=== PATIENT | female | born 1950 | race Caucasian/White ===

== ENCOUNTER 2017-12-13 14:58 | Emergency (ER) | payer OTHER ==
[~2017-12-13] VITALS: Ht 177.8 cm; Wt 112.3 kg
[~2017-12-13 14:58] MED LIST: ALPRAZOLAM0.5 MG PO; ATELVIA35 MG PO; BENICAR40 MG PO; CYMBALTA60 MG PO; FLAGYL500 MG PO; GABAPENTIN600 MG; GABAPENTIN600 MG PO; GLIMEPIRIDE1 MG PO; GLUMETZA1000 M1 PO; LOSARTAN POTASS50 MG PO; SIMVASTATIN40 MG PO; TRAZODONE HCL100 MG PO; VICTOZA 2-0.6 MG/0.1 SC; ZOFRAN ODT4 MG PO
[2017-12-13 16:11] LABS: HEMATOCRIT 39.5 % (36.0-46.0); HEMOGLOBIN 13.3 G/DL (11.9-15.5); MCH 30.2 PG (29.0-34.0); MCHC 33.7 G/DL (30.0-36.0); MCV 89.8 FL (83-99); PLATELET COUNT 261 K/uL (156-360); RBC DIS.WIDTH-CV 12.7 % (11.8-14.6); RBC DIS.WIDTH-SD 42.1 % (39-53)
[2017-12-13 16:21] LABS: APPEARANCE CLEAR ((CLEAR)); BILIRUBIN NEGATIVE; BLOOD LARGE; COLOR YELLOW ((YELLOW)); GLUCOSE (STRIP) 50; KETONES NEGATIVE; LEUKOCYTES NEGATIVE; NITRITE NEGATIVE; PROTEIN (STRIP) 100; SPECIFIC GRAVITY 1.019 (1.000-1.030); UROBILINOGEN 0.2 MG/DL (0.2-1.0)
[2017-12-13 16:23] LABS: BACTERIA NONE SEEN /HPF; EPITHELIAL CELLS RARE /HPF; MUCUS TRACE /LPF; RED BLOOD CELLS TNTC /HPF (0-5); UCUL ADDED? YES; WHITE BLOOD CELLS 0-5 /HPF (0-5)
[2017-12-13 16:24] LABS: CHLORIDE 106 mEq/L (99-109); POTASSIUM 3.9 mEq/L (3.7-5.4); SODIUM 137 mEq/L (136-147)
[2017-12-13 16:25] LABS: GLUCOSE 193 mg/dL (70-99)
[2017-12-13 16:29] LABS: CREATININE 1.2 mg/dL (0.6-1.3); GFR ESTIMATE (CALCULATED) 48 mL/min/
[2017-12-13 16:30] LABS: UREA NITROGEN (BUN) 19 mg/dL (9-23)
[2017-12-13] MEDS ORDERED: MOTRIN800 MG PO (17:53)
[2017-12-13] MEDS ORDERED: FLOMAX0.4 MG PO (17:53)
[2017-12-13] MEDS ORDERED: ZOFRAN ODT4 MG PO (17:53)
[2017-12-13] MEDS ORDERED: PERCOCET 5/31 TABLET PO (17:53)
[2017-12-13 18:06] VITALS: BP 173/91
== END 2017-12-13 18:07 | disposition home or self-care (01) ==
LOC: EME 14:58
PROVIDERS: Nurse Practitioner Family
DX: N13.2 Hydronephrosis with renal and ureteral calculous obstruction (principal); Z87.442 Personal history of urinary calculi; I10 Essential (primary) hypertension; E11.9 Type 2 diabetes mellitus without complications; E78.5 Hyperlipidemia, unspecified; Z88.5 Allergy status to narcotic agent; Z88.2 Allergy status to sulfonamides; Z88.0 Allergy status to penicillin
CPT/HCPCS: 74176; 80048; 81003; 85027; 87086 GA; 99281; 99284; J1885

== ENCOUNTER → 2017-12-15 | Outpatient (CLI) | payer MEDICARE, OTHER ==
[~2017-12-15] MED LIST changes: +FLOMAX0.4 MG PO; +MOTRIN800 MG PO; +PERCOCET 5/31 TABLET PO
== END | disposition home or self-care (01) ==
LOC: CDC 12:51
DX: Z01.810 Encounter for preprocedural cardiovascular examination (principal); I45.10 Unspecified right bundle-branch block; R94.31 Abnormal electrocardiogram [ECG] [EKG]
CPT/HCPCS: 93000

== ENCOUNTER 2018-01-05 11:06 | Emergency (ER) | payer OTHER ==
[~2018-01-05] VITALS: Ht 177.8 cm; Wt 112.2 kg
[2018-01-05 11:40] LABS: HEMATOCRIT 37.6 % (36.0-46.0); HEMOGLOBIN 12.6 G/DL (11.9-15.5); MCH 30.7 PG (29.0-34.0); MCHC 33.5 G/DL (30.0-36.0); MCV 91.5 FL (83-99); PLATELET COUNT 300 K/uL (156-360); RBC DIS.WIDTH-CV 12.7 % (11.8-14.6); RBC DIS.WIDTH-SD 42.5 % (39-53); RED BLOOD COUNT 4.11 M/uL (3.80-5.20); WHITE BLOOD COUNT 9.2 K/uL (4.1-10.2)
[2018-01-05 11:51] LABS: CHLORIDE 106 mEq/L (99-109); SODIUM 140 mEq/L (136-147)
[2018-01-05 11:53] LABS: GLUCOSE 141 mg/dL (70-99)
[2018-01-05 11:56] LABS: CREATININE 1.5 mg/dL (0.6-1.3); GFR ESTIMATE (CALCULATED) 37 mL/min/
[2018-01-05 11:57] LABS: UREA NITROGEN (BUN) 28 mg/dL (9-23)
[2018-01-05 12:18] LABS: APPEARANCE CLEAR ((CLEAR)); BILIRUBIN NEGATIVE; BLOOD MODERATE; COLOR YELLOW ((YELLOW)); GLUCOSE (STRIP) NEGATIVE; KETONES NEGATIVE; LEUKOCYTES TRACE; NITRITE NEGATIVE; PROTEIN (STRIP) 30; SPECIFIC GRAVITY 1.017 (1.000-1.030); UROBILINOGEN 0.2 MG/DL (0.2-1.0)
[2018-01-05 12:22] LABS: BACTERIA RARE /HPF; EPITHELIAL CELLS RARE /HPF; MUCUS TRACE /LPF; UCUL ADDED? YES
[2018-01-05] MEDS ORDERED: KEFLEX500 MG PO (14:57)
[2018-01-05] MEDS ORDERED: PERCOCET 5/31 TABLET PO (14:57)
[2018-01-05] MEDS ORDERED: NAPROSYN500 MG PO (14:57)
[2018-01-05 15:12] VITALS: BP 144/75
== END 2018-01-05 15:13 | disposition home or self-care (01) ==
LOC: EME 11:06
DX: N39.0 Urinary tract infection, site not specified (principal); Z87.442 Personal history of urinary calculi; E11.9 Type 2 diabetes mellitus without complications; E78.5 Hyperlipidemia, unspecified; I10 Essential (primary) hypertension; Z90.710 Acquired absence of both cervix and uterus; Z88.2 Allergy status to sulfonamides; Z88.0 Allergy status to penicillin; Z91.041 Radiographic dye allergy status; Z88.5 Allergy status to narcotic agent
CPT/HCPCS: 74018; 76770; 80048; 81003; 85027; 87086; 99281; 99283; J1885